=== PATIENT | male | born 1960 | race Caucasian/White ===

== ENCOUNTER → 2023-01-10 15:04 | Outpatient (BNVA) | payer OTHER, SELFPAY | PROVIDERS: PCP Internal Medicine; Visit Provider Hospitalist | DX: J44.9 Chronic obstructive pulmonary disease, unspecified (principal); J64 Unspecified pneumoconiosis; R91.1 Solitary pulmonary nodule; R13.10 Dysphagia, unspecified; Z87.891 Personal history of nicotine dependence | CPT/HCPCS: 99202 ==

== ENCOUNTER 2023-03-07 09:06 | Outpatient (REF) | payer OTHER, SELFPAY ==
--- NOTE | ~2023-03-07 | FL_ITS ---
EXAMINATION: FL BARIUM SWALLOW CLINICAL INFORMATION: Reflux, heartburn. COMPARISON: None available. TECHNIQUE: Barium swallow examination is performed using fluoroscopic evaluation in addition to multiple fluoroscopic spot views. The patient is imaged both upright and prone and using both thick and thin sulfate along with effervescent granules. Fluoroscopy time: 1.7 minutes DAP: 2.521 Gy-cm2 Images: 34 FINDINGS: There is normal apposition of vocal cords while saying E . There is normal elevation of the soft palate while saying candy . Patient swallowed thin and thick barium and half-inch diameter barium tablet without difficulty. No nasopharyngeal reflux or tracheal aspiration identified. No significant cricopharyngeal hypertrophy or Zenker's diverticulum was identified. There is noted to be esophageal hypomotility. No gastroesophageal reflux was elicited during the study including with water siphon test. No esophageal mucosal abnormality was appreciated. No hiatal hernia. FL/FL barium swallow IMPRESSION: Esophageal hypomotility without hiatal hernia or gastric esophageal reflux being identified during the study.
== END 2023-03-07 09:07 | disposition home or self-care (01) ==
LOC: HO.XRAY 09:06
PROVIDERS: PCP Internal Medicine; Visit Provider Hospitalist
DX: K21.9 Gastro-esophageal reflux disease without esophagitis (principal)
CPT/HCPCS: 74220

== ENCOUNTER → 2023-03-19 15:37 | Outpatient (BNVA) | payer OTHER, SELFPAY | PROVIDERS: PCP Internal Medicine; Visit Provider Hospitalist | DX: J44.9 Chronic obstructive pulmonary disease, unspecified (principal); R91.8 Other nonspecific abnormal finding of lung field; J64 Unspecified pneumoconiosis; R13.10 Dysphagia, unspecified; Z79.899 Other long term (current) drug therapy | CPT/HCPCS: 99212 ==

== ENCOUNTER 2023-05-06 15:30 | Outpatient (REF) | payer OTHER, SELFPAY ==
--- NOTE | ~2023-05-06 | CT_ITS ---
EXAMINATION: CT CHEST WITHOUT CONTRAST CLINICAL INFORMATION: 62-year-old male with history of nonspecific abnormal finding of lung. COMPARISON: CT/PET imaging from 08/18/2014. TECHNIQUE: Multidetector volumetric CT imaging of the chest was done. Axial MIP volume rendering provided. Sagittal and coronal reformatted images were obtained. This CT examination was performed using dose optimization techniques as appropriate, variously including the following: *Automated exposure control *Adjustment of mA and/or kV according to patient size (this includes techniques or standardized protocols for targeted exams where dose is matched to indication/reason for exam; i.e. extremities or head) *Use of iterative reconstruction technique DLP: 141 mGy-cm FINDINGS: LUNGS AND PLEURA: Lungs are chronically hyperexpanded and there is moderate centrilobular emphysema and [id number] paraseptal emphysema. Saber-sheath configuration of the trachea. There are frothy secretions within the left mainstem bronchus. The bronchial lugo are mildly, diffusely thickened. There is an old, collapsed thick-walled cavitary focus at the right lung apex. Interval development of calcific densities in the wall and surrounding parenchyma. Chronic architectural distortion, fibrosis and traction bronchiectasis are present in the right apex. A calcified nodular focus peripheral to a bulla in the anterior right upper lobe has an average diameter of 0.6 cm and is stable compared to 08/18/2014 (image 257, series 5). An old small triangular shaped focus in the anterolateral right lower lobe is likely a lymph node (image 509, series 5). Chronic pleural-parenchymal opacity of scarring/fibrosis is present in the lateral left upper lobe and apex, and scattered small foci of calcification are present in the apex. There is interval increased parenchymal thickening around an emphysematous space in the lateral left apex (image 90, series 5) as well as mild traction bronchiectasis in this region. This has the appearance of inflammatory/postinfectious change. No pneumothorax or pleural effusion. A solid nodule in the anterolateral left lower lobe of 0.6 cm average diameter (image 529, series 5) has not significantly changed since 08/18/2014. CARDIOVASCULAR: The heart size is normal. No pericardial effusion. Mild atherosclerosis of the thoracic aorta without aneurysm. Pulmonary arteries are normal in caliber. CORONARY ARTERY CALCIFICATION: There is mild atherosclerotic calcification of the left anterior descending coronary artery. MEDIASTINUM AND LOWER NECK: No mediastinal mass. The esophagus and thyroid gland are unremarkable. LYMPHATICS: No pathologic sized lymph nodes. UPPER ABDOMEN: Adrenal glands are normal. 0.4 cm calyceal stone of the upper pole of the right kidney. No hydronephrosis. SKELETAL AND CHEST WALL: No chest wall mass. Bones are diffusely osteopenic. Degenerative disc disease of L2-L3 with mild retrolisthesis of L2 on L3. No acute or suspicious osseous abnormality. CT/CT chest wo IV con IMPRESSION: * There is extensive centrilobular and paraseptal emphysema. * Chronic architectural distortion and collapse of an old thick-walled cavitary focus in the right upper lobe. This is consistent with sequela of remote infection/inflammation. No evidence of acute pneumonia or emerging mass in this region. * Compared to 08/18/2014, there is increased pleural-parenchymal opacity that has the appearance of inflammatory change/fibrosis. Query whether patient has had any clinical pneumonia within the last several months. Although the opacity does not have a masslike appearance, consider chest CT follow-up in the next 3-6 months to ensure stability in this patient who would be at increased risk for development of carcinoma.
== END 2023-05-06 15:31 | disposition home or self-care (01) ==
LOC: HO.CT 15:30
PROVIDERS: PCP Internal Medicine; Visit Provider Hospitalist
DX: R91.8 Other nonspecific abnormal finding of lung field (principal)
CPT/HCPCS: 71250

== ENCOUNTER 2023-06-04 15:34 | Outpatient (REF) | payer OTHER, SELFPAY ==
--- NOTE | 2023-06-04 16:19 | PFT_ITS ---
Forced vital capacity 71%, FEV1 34%, FEV1/FVC ratio is 38. FEF 25-75 18% and MVV 37%. Post bronchodilator therapy, there is marked improvement in FEV1, FEF 25/75, and FEF maximum. Total lung capacity 143%, residual volume to 20%. Diffusion capacity 56%. CONCLUSION: Very severe obstructive airway disorder. Significant improvement after bronchodilator therapy is noted. These findings are consistent with asthma/COPD overlap syndrome. There is also evidence of hyperinflation and air trapping. Clinical correlation is recommended. Bill Thompson MD MSRad/MODL / [phone]
== END 2023-06-04 15:35 | disposition home or self-care (01) ==
LOC: HO.RESP 15:34
PROVIDERS: PCP Internal Medicine; Visit Provider Hospitalist
DX: J44.9 Chronic obstructive pulmonary disease, unspecified (principal)
CPT/HCPCS: 94010; 94727; 94729

== ENCOUNTER → 2023-06-04 16:19 | Outpatient (BNV) | payer OTHER, SELFPAY | PROVIDERS: PCP Internal Medicine; Visit Provider Internal Medicine | DX: J43.9 Emphysema, unspecified (principal) | CPT/HCPCS: 94060; 94727; 94729 ==

== ENCOUNTER 2023-06-27 15:49 | Outpatient (AMB) | payer OTHER, SELFPAY ==
--- NOTE | 2023-06-27 15:58 | A.OFFVIS_ITS ---
Intake Vital Signs 06/27/23 15:59 Height 6 ft 1 in Weight 142 lb 3.17 oz BMI 18.8 BP 126/70 Blood Pressure Location Rt brachial Position Sitting Pulse 87 Pulse Source Pulse Oximeter Pulse Oximetry (%) 95 Oxygen Delivery Method Room Air Intake Visit Reasons: COPD Historic [employer]othing [employer] Costume Maker Required: No Bag Hanger: Bag Hanger offered & declined Accompanied by: Self / Same As Patient Allergies reglan Allergy (Severe, Uncoded 06/27/23 16:02) Agitated Medication List - Last Reconciled 06/27/23 by Diane Manzano LPN albuterol sulfate 90 mcg/actuation 2 puffs inhalation Q6H PRN 30 days arformoterol (Brovana) 2 mL inhalation Q12H 30 days budesonide 0.5 mg (2 mL) inhalation BID 30 days diazepam 5 mg PO BID ipratropium bromide 17 mcg/actuation (Atrovent HFA) 2 puffs inhalation QID PRN nebulizers As directed sertraline 25 mg PO DAILY tiotropium bromide 2.5 mcg/actuation (Spiriva Respimat) 2 puffs inhalation DAILY 90 days trazodone 100 - 200 mg PO BEDTIME umeclidinium-vilanterol 62.5-25 mcg/actuation (Anoro Ellipta) 1 ea inhalation DAILY HPI HPI Comments History of Present Illness Details The patient is a 62-year-old gentleman with a history of smoking presents with worsening respiratory symptoms. The patient was given a diagnosis of COPD. He has tried multiple inhalers without any significant improvement. Complains of shortness of breath with activity. Sometimes he has episodes where he just can not catch his breath even at rest. Seems like the symptoms are getting worse. He has not undergone pulmonary function studies. He is participating in the lung cancer screening program at [facility]. We did review his CT scans. He has a small 6 mm pulmonary nodule that has not changed. In addition to that he has significant emphysema with some bolus emphysema primarily upper lung zone predominant. 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 He does have a respirator that he uses mainly when he is working with will base pains but not so much with the latex pains. During the visit we did go for brief walking oximetry in his oxygen did drop to around 91 92%, but, did not qualify for oxygen. 03/19/2023 the patient is here for a pulm onary follow-up visit. The patient overall still feels short of breath moderate severity. Patient still desaturates down to 90% with activity. If he goes up a flight of stairs or uphill he likely drops further down. The patient was switched over to nebulized therapy. She is seems to be little better but still having significant symptoms. Still has a hard time swallowing. The barium swallow demonstrated hypomotility no evidence of any reflux or hiatal hernia. The patient has not had PFTs yet. Will go ahead and request PFTs and also start him on pulmonary rehabilitation. Will reassess his oxygen needs when he starts pulmonary rehab. He did have a CT scan of the chest back in April 2022 demonstrating pulmonary nodules. The patient should have a repeat CT scan April of this year. Will follow-up with the results during the next visit. Today we did a swab for alpha-1 antitrypsin deficiency will hopefully have that back in a few weeks. 06/27/2023 the patient is here for a pulmonary follow-up visit. He is doing overall about the same. Continues to work very hard in his [employer] company. Continues use his respiratory therapy with the nebulized med her. We did review his pulmonary function studies. The patient does have reversible obstruction consistent with an asthma phenotype. Although he does have extensive emphysema. He did try to go to pulmonary rehab they did not have any times in the afternoon and therefore he could not go. The patient did have a CT scan of the chest that was personally by me. I also reviewed the CT scan that he had previously. He is has a lot of pleural parenchymal disease primarily at the right upper lobe area. To some degree does have a cavitary thick wall area in the right upper lobe area. He has had multiple CT scans. He was actually compared to 2014 when he had it but slightly increased size. Likely more inflammatory or postinfectious. Still the patient does have a high-risk malignancies or will need to continue to be monitored. He does have extensive emphysema therefore any kind of intervention would be high risk for this patient. [facility] Medical History (Updated 06/27/23 @ 22:47 by Alan Lagos MD) Pneumoconiosis Pulmonary nodules COPD (chronic obstructive pulmonary disease) Dysphagia Social History (Updated 06/27/23 @ 16:04 by Diane Manzano LPN) Patient Tobacco Use Status: Former Tobacco user Tobacco use type: Cigarette Years Smoked: 30 Years Review of Systems Const Denies fever(s) Eyes Denies change in vision ENT Reports dysphagia, Denies dizziness and Reports nasal congestion Card Denies chest pain, Reports dyspnea and Reports dyspnea on exertion Resp Reports cough, Reports dyspnea, Reports dyspnea on exertion and Denies wheezing GI Reports dysphagia Musc Reports no additional complaints Skin/Breast Denies rash Neuro Denies dizziness Andrea/Lymph Denies lymphadenopathy Aller/Immun Denies wheezing Physical Exam Vital Signs: Last Vital Signs Pulse 87 06/27/23 15:59 BP 126/70 06/27/23 15:59 Pulse Ox 95 06/27/23 15:59 Oxygen Delivery Method Room Air 06/27/23 15:59 BMI result Body Mass Index 18.8 Const General: comfortable HEENT Head: Yes normocephalic Eyes General: appearance normal, both eyes and all related structures Neck Neck: Yes supple Chest Chest palpation & inspection: normal inspection of the chest Resp Effort & Inspection: normal respiratory effort Auscultation: no rales, no rhonchi and diminished lung sounds Cardio Rate: regular rate Rhythm: regular rhythm Heart sounds: S1 normal heart sound present and S2 normal heart sound present GI Palpation (GI): Soft to palpation Extrem General: Yes no clubbing, cyanosis or edema Assessment & Plan Assessment & Plan (1) COPD (chronic obstructive pulmonary disease): Comment: asthma phenotype Code(s): J44.9 - Chronic obstructive pulmonary disease, unspecified Qualifiers: COPD type: emphysema Emphysema type: centrilobular Qualified Code(s): J43.2 - Centrilobular emphysema (2) Dysphagia: Comment: dysmotility based on barium swallow Code(s): R13.10 - Dysphagia, unspecified Qualifiers: Dysphagia type: oral phase Qualified Code(s): R13.11 - Dysphagia, oral phase (3) Pulmonary nodules: Code(s): R91.8 - Other nonspecific abnormal finding of lung field (4) 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
[2023-06-27 15:59] VITALS: BP 126/70; PULSE 87; O2SAT 95; BMI 18.8
== END 2023-06-27 16:20 | disposition home or self-care (01) ==
PROVIDERS: PCP Internal Medicine; Visit Provider Hospitalist
DX: J43.2 Centrilobular emphysema (principal); R13.11 Dysphagia, oral phase; R91.8 Other nonspecific abnormal finding of lung field; J64 Unspecified pneumoconiosis
CPT/HCPCS: 99214

== ENCOUNTER → 2023-06-27 15:49 | Outpatient (BNVA) | payer OTHER, SELFPAY | PROVIDERS: PCP Internal Medicine; Visit Provider Hospitalist | DX: J43.2 Centrilobular emphysema (principal); R13.11 Dysphagia, oral phase; R91.8 Other nonspecific abnormal finding of lung field; J64 Unspecified pneumoconiosis; Z79.899 Other long term (current) drug therapy | CPT/HCPCS: 99212 ==

== ENCOUNTER 2024-01-23 15:38 | Outpatient (AMB) | payer OTHER, SELFPAY ==
[2024-01-23 15:46] VITALS: PULSE 89; O2SAT 96; BMI 18.5
--- NOTE | 2024-01-23 15:46 | A.OFFVIS_ITS ---
Vital Signs 01/23/24 15:46 Height 6 ft 1 in Weight 139 lb 15.896 oz BMI 18.5 Pulse 89 Pulse Source Pulse Oximeter Pulse Oximetry (%) 96 Oxygen Delivery Method Room Air Intake Visit Reasons: COPD Bail Agent Required: No Allergies reglan Allergy (Severe, Uncoded 01/23/24 15:47) Agitated HPI Comments Details: The patient is a 63 -year-old gentleman with a history of smoking presents with worsening respiratory symptoms. The patient was given a diagnosis of COPD. He has tried multiple inhalers without any significant improvement. Complains of shortness of breath with activity. Sometimes he has episodes where he just can not catch his breath even at rest. Seems like the symptoms are getting worse. He has not undergone pulmonary function studies. He is participating in the lung cancer screening program at [facility]. We did review his CT scans. He has a small 6 mm pulmonary nodule that has not changed. In addition to that he has significant emphysema with some bolus emphysema primarily upper lung zone predominant. 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 He does have a respirator that he uses mainly when he is working with [employer] pains but not so much with the latex pains. During the visit we did go for brief walking oximetry in his oxygen did drop to around 91 92%, but, did not qualify for oxygen. 03/19/2023 the patient is here for a pulmonary follow-up visit. The patient ove rall still feels short of breath moderate severity. Patient still desaturates down to 90% with activity. If he goes up a flight of stairs or uphill he likely drops further down. The patient was switched over to nebulized therapy. She is seems to be little better but still having significant symptoms. Still has a hard time swallowing. The barium swallow demonstrated hypomotility no evidence of any reflux or hiatal hernia. The patient has not had PFTs yet. Will go ahead and request PFTs and also start him on pulmonary rehabilitation. Will reassess his oxygen needs when he starts pulmonary rehab. He did have a CT scan of the chest back in April 2022 demonstrating pulmonary nodules. The patient should have a repeat CT scan April of this year. Will follow-up with the results during the next visit. Today we did a swab for alpha-1 antitrypsin deficiency will hopefully have that back in a few weeks. 06/27/2023 the patient is here for a pulmonary follow-up visit. He is doing o verall about the same. 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 Continues use his respiratory therapy with the nebulized med her. We did review his pulmonary function studies. The patient does have reversible obstruction consistent with an asthma phenotype. Although he does have extensive emphysema. He did try to go to pulmonary rehab they did not have any times in the afternoon and therefore he could not go. The patient did have a CT scan of the chest that was personally by me. I also reviewed the CT scan that he had previously. He is has a lot of pleural parenchymal disease primarily at the right upper lobe area. To some degree does have a cavitary thick wall area in the right upper lobe area. He has had multiple CT scans. He was actually compared to 2013 when he had it but slightly increased size. Likely more inflammatory or postinfectious. Still the patient does have a high-risk malignancies or will need to continue to be monitored. He does have extensive emphysema therefore any kind of intervention would be high risk for this patient. 01/23/2024 the patient is here for a pulmonary follow-up visit. He continues have episodes of shortness of breath. He has been using the nebulizer with good effect. Sometimes he does not have enough time to give himself the 2 treatments. I did offer him to be switched over to inhalers but at this point he finds the nebulizer more effective. He continues also on the Spiriva. 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 He understands he needs to make sure that he maintains good ventilation to minimize fumes and toxin exposure. The patient did have a CT scan of the chest last done in April 2023. I did review it and did compare to his previous CT scan from [facility] done back in 2021. it appears that he does have a new 8 mm pulmonary nodule in the lingula which was not present again on the CT scan from [facility]. For that reason I will go ahead and request a CT scan sooner to make sure this nodular density does not progress. The patient also has a history family history of cancer. the patient also has not asthma phenotype. Will go ahead and request blood work prior to the next visit to see if he has a candidate for any biologic therapies in view of his ongoing symptoms and severe persistent uncontrolled asthma. [facility] Medical History (Updated 01/23/24 @ 21:54 by Alan Lagos MD) Severe asthma Pneumoconiosis Pulmonary nodules COPD (chronic obstructive pulmonary disease) Dysphagia Social History (Updated 06/27/23 @ 16:04 by Diane Manzano LPN) Patient Tobacco Use Status: Former Tobacco user Tobacco use type: Cigarette Years Smoked: 30 Years Review of Systems Const Denies fever(s) Eyes Denies change in vision ENT Reports dysphagia, Denies dizziness and Reports nasal congestion Card Denies chest pain, Reports dyspnea and Reports dyspnea on exertion Resp Reports cough, Reports dyspnea, Reports dyspnea on exertion and Denies wheezing GI Reports dysphagia Musc Reports no additional complaints Skin/Breast Denies rash Neuro Denies dizziness Andrea/Lymph Denies lymphadenopathy Aller/Immun Denies wheezing Physical Exam Vital Signs: Last Vital Signs Pulse 89 01/23/24 15:46 Pulse Ox 96 01/23/24 15:46 Oxygen Delivery Method Room Air 01/23/24 15:46 BMI result Body Mass Index 18.5 Const General: comfortable HEENT Head: Yes normocephalic Eyes General: appearance normal, both eyes and all related structures Neck Neck: Yes supple Chest Chest palpation & inspection: normal inspection of the chest Resp Effort & Inspection: normal respiratory effort Auscultation: no rales, no rhonchi, wheezes and diminished lung sounds Cardio Rate: regular rate Rhythm: regular rhythm Heart sounds: S1 normal heart sound present and S2 normal heart sound present GI Palpation (GI): Soft to palpation Extrem General: Yes no clubbing, cyanosis or edema Assessment & Plan Assessment & Plan (1) COPD (chronic obstructive pulmonary disease): Comment: asthma phenotype Code(s): J44.9 - Chronic obstructive pulmonary disease, unspecified Category: Medical Qualifiers: COPD type: emphysema Emphysema type: centrilobular Qualified Code(s): J43.2 - Centrilobular emphysema (2) Dysphagia: Comment: dysmotility based on barium swallow Code(s): R13.10 - Dysphagia, unspecified Category: Medical Qualifiers: Dysphagia type: oral phase Qualified Code(s): R13.11 - Dysphagia, oral phase (3) Pulmonary nodules: Code(s): R91.8 - Other nonspecific abnormal finding of lung field Category: Medical (4) 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 COPD Code(s): J64 - Unspecified pneumoconiosis Category: Medical (5) Severe asthma: Code(s): J45.909 - Unspecified asthma, uncomplicated Category: Medical Qualifiers: Asthma complication type: uncomplicated Asthma persistence: persistent Qualified Code(s): J45.50 - Severe persistent asthma, uncomplicated Plan continue Brovana twice a day continue budesonide twice a day continue Spiriva daily Pulmonary rehab, consider online) Will need CT chest to reassess the new >8mm Lingular pulmonary nodule Bloodwork follow-up in 6 months Orders: Orders CT chest wo IV con Today R91.8 - Other nonspecific abnormal finding of lung field Complete Blood Count Auto Diff Today J43.2 - Centrilobular emphysema, J64 - Unspecified pneumoconiosis, R91.8 - Other nonspecific abnormal finding of lung field Hypersensitive Pneumonitis Prf Today J43.2 - Centrilobular emphysema, J64 - Unspecified pneumoconiosis, R91.8 - Other nonspecific abnormal finding of lung field Immunoglobulin E Today J43.2 - Centrilobular emphysema, J64 - Unspecified pneumoconiosis, R91.8 - Other nonspecific abnormal finding of lung field Erythrocyte Sedimentation Rate Today J43.2 - Centrilobular emphysema, J64 - Unspecified pneumoconiosis, R91.8 - Other nonspecific abnormal finding of lung field Coding Level of Care Code Est Pt Level 4 (74662) Diagnoses Centrilobular emphysema J43.2 COPD type: emphysema Emphysema type: centrilobular Oral phase dysphagia R13.11 Dysphagia type: oral phase Pulmonary nodules R91.8 Pneumoconiosis J64 Severe persistent asthma without complication J45.50 Asthma complication type: uncomplicated Asthma persistence: persistent Time Spent (min) 18
== END 2024-01-23 16:11 | disposition home or self-care (01) ==
PROVIDERS: PCP Internal Medicine; Visit Provider Hospitalist
DX: J43.2 Centrilobular emphysema (principal); R13.11 Dysphagia, oral phase; R91.8 Other nonspecific abnormal finding of lung field; J64 Unspecified pneumoconiosis; J45.50 Severe persistent asthma, uncomplicated
CPT/HCPCS: 99214

== ENCOUNTER → 2024-01-23 15:38 | Outpatient (BNVA) | payer OTHER, SELFPAY | PROVIDERS: PCP Internal Medicine; Visit Provider Hospitalist | DX: J43.2 Centrilobular emphysema (principal); J45.50 Severe persistent asthma, uncomplicated; R13.11 Dysphagia, oral phase; R91.8 Other nonspecific abnormal finding of lung field; J64 Unspecified pneumoconiosis; Z79.899 Other long term (current) drug therapy | CPT/HCPCS: 99212 ==

== ENCOUNTER 2024-03-09 16:18 | Outpatient (REF) | payer OTHER, SELFPAY ==
--- NOTE | ~2024-03-09 | CT_ITS ---
EXAMINATION: CT CHEST WITHOUT CONTRAST CLINICAL INFORMATION: 63-year-old male, follow-up pleural abnormality left upper lobe laterally and left apex.; Other nonspecific abnormal finding of lung field. COMPARISON: 05/06/2023; PET/CT dated 08/18/2014. TECHNIQUE: Multidetector volumetric CT imaging of the chest was done. Axial MIP volume rendering provided. Sagittal and coronal reformatted images were obtained. This CT examination was performed using dose optimization techniques as appropriate, variously including the following: *Automated exposure control *Adjustment of mA and/or kV according to patient size (this includes techniques or standardized protocols for targeted exams where dose is matched to indication/reason for exam; i.e. 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 Scarring in bilateral apices with calcification in right apex. LUNGS: -There is moderate to severe centrilobular emphysema bilaterally, with scarring and bullous changes in the bilateral apices, unchanged from the prior examination. No consolidations. Mild respiratory motion artifact is present in both lungs. RIGHT LUNG: -Stable right apical pleuroparenchymal scarring with traction bronchiectasis, subpleural fibrosis, and a similar retracted appearing partially collapsed appearing cavity with minimally thick lugo in the right apex centrally. Compared with the prior examination, lugo appear slightly less thickened, supporting inflammatory/infectious etiology. Associated calcified granulomatous are present along with a large calcification immediately inferior to the cavity. -There are similar apical bullous changes, with stable paramediastinal bullous changes. -There is traction bronchiectasis in the right upper lobe, with associated mild volume loss, with lesser degrees cylindrical bronchiectasis in the right middle lobe and right lower lobe. Mild bronchial wall thickening is present in the right apex and right upper lobe superior segment. This is unchanged. Grossly no filling defects or intraluminal masses. No significant mucous plugging evident. -There is a similar partially calcified nodule in the anterior minor fissure, most likely intrapulmonary lymph node with granulomatous change. -2 mm nodule superior segment right lower lobe (series 7, image 271), stable. -Triangular intrapulmonary lymph node in the anterior inferior right lower lobe (series 7, image 517) is stable. -2 mm nodule in the right posterior costophrenic sulcus (series 4, image 70), stable. -No new nodules. LEFT LUNG: -Left apical and paramediastinal bullous changes, unchanged. -Cavitary lesion in the lateral left apex with pleural thickening has improved, with no persistent cavity present, and stable pleural thickening present in the lateral left apex and anterior left upper lobe superior segment. These findings are unchanged and hence benign, related to post inflammatory/infectious changes. -Stable granulomatous calcifications in the posterior aspect of the left upper lobe, with probable suture line present posteriorly, also unchanged. -Stable traction bronchiectasis left upper lobe, most significant superior segment. -Mild bronchiectasis in the lingula and left lower lobe without significant bronchial wall thickening or endobronchial filling defect. -Stable 3 mm nodule (series 7, image 353) unchanged, benign. -Average diameter 6 mm nodule in the anteroinferior left lower lobe is unchanged (series 7, image 557). This has a pleural tag and may represent a lymph node. It is also unchanged from 2014. This is benign. -No new nodules. MEDIASTINUM: -Saber-sheath trachea. -Heart size normal. -Prominence of the aortic root noted, approximately 3.7 cm AP, although motion blurring on this non-gated study could accentuate this. This appears unchanged. No pericardial effusion. -Main pulmonary artery is normal in size. -Mild aortic calcifications are present without aneurysm. Normal branching pattern with mild calcification of the great vessels. -Thyroid appears slightly small but otherwise normal. -No lymphadenopathy. CORONARY ARTERY CALCIFICATION: Mild, proximal LAD. Minimal proximal circumflex. Minimal RCA. PLEURA: As described above. No effusions. AXILLA: No lymphadenopathy. UPPER ABDOMEN: -5 mm nonobstructing calculus medial upper pole right kidney. -Moderate aortic calcification. OSSEOUS STRUCTURES: -No suspicious lytic or blastic bone lesion. Mild osteopenia of the spine. -Severe degenerative disc disease localized L2-L3 with mild retrolisthesis, grade 1. Remainder of the lumbar spine not imaged. -Mild DJD in both shoulder joints. CT/CT chest wo IV con IMPRESSION: 1. Moderate to severe centrilobular and paraseptal emphysema with stable apical and paramediastinal bullous changes. No definite active pulmonary disease seen. 2. Biapical pleural parenchymal scarring and pleural thickening greater on the left, is stable from prior exams and consistent with an infectious/inflammatory etiology. 3. A crenated-appearing right apical cavitary lesion demonstrates similar size however the lugo are slightly thinner, supporting benign etiology. 4. Previously present left apical cavitary focus has resolved on today's exam. 5. Diffuse bronchiectasis bilaterally, most significant in the upper lobes and apices, where there is traction bronchiectasis and mild bronchial wall thickening, likely on the basis of chronic fibrotic changes. No endobronchial filling defect seen. 6. Stable bilateral nodules measuring up to 6 mm average diameter, with no new nodule present. 7. Aortic root appears slightly prominent, however this is a non-gated study. Consider correlation with echocardiogram to exclude aortic root dilatation and aortic valve insufficiency. 8. 5 mm nonobstructing calculus right superior kidney. 9. Additional ancillary findings as described in the body of the report. Fleischner guidelines were followed.
== END 2024-03-09 16:19 | disposition home or self-care (01) ==
LOC: HO.CT 16:18
PROVIDERS: PCP Internal Medicine; Visit Provider Hospitalist
DX: R91.8 Other nonspecific abnormal finding of lung field (principal)
CPT/HCPCS: 71250

== ENCOUNTER → 2024-03-09 16:20 | Outpatient (BNV) | payer OTHER, SELFPAY | PROVIDERS: PCP Internal Medicine; Visit Provider Radiology Diagnostic Radiology | DX: R91.8 Other nonspecific abnormal finding of lung field (principal) | CPT/HCPCS: 71250 ==

== ENCOUNTER 2024-07-28 15:37 | Outpatient (AMB) | payer OTHER, SELFPAY ==
--- NOTE | 2024-07-28 15:41 | A.OFFVIS_ITS ---
Vital Signs 07/28/24 15:42 Weight 139 lb 15.896 oz BP 128/80 Blood Pressure Location Rt brachial Position Sitting Pulse 105 H Pulse Source Pulse Oximeter Pulse Oximetry (%) 97 Oxygen Delivery Method Room Air Intake Visit Reasons: COPD Allergies reglan Allergy (Severe, Uncoded 07/28/24 15:45) Agitated Medication List - Last Reconciled 07/28/24 by Janet Garnica LPN albuterol sulfate 90 mcg/actuation 2 puffs inhalation Q6H PRN 30 days arformoterol (Brovana) 2 mL inhalation Q12H 30 days budesonide 0.5 mg (2 mL) inhalation BID 30 days diazepam 5 mg PO BID ipratropium bromide 17 mcg/actuation (Atrovent HFA) 2 puffs inhalation QID PRN nebulizers As directed sertraline 25 mg PO DAILY tiotropium bromide 2.5 mcg/actuation (Spiriva Respimat) 2 puffs inhalation DAILY 90 days trazodone 100 - 200 mg PO BEDTIME HPI Comments Details: The patient is a 64-year-old gentleman with a history of smoking presents with worsening respiratory symptoms. The patient was given a diagnosis of COPD. He has tried multiple inhalers without any significant improvement. Complains of shortness of breath with activity. Sometimes he has episodes where he just can not catch his breath even at rest. Seems like the symptoms are getting worse. He has not undergone pulmonary function studies. He is participating in the [facility] cancer screening program at [facility]. We did review his CT scans. He has a small 6 mm pulmonary nodule that has not changed. In addition to that he has significant emphysema with some bolus emphysema primarily upper lung zone predominant. 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 He does have a respirator that he uses mainly when he is working with will base pains but not so much with the latex pains. During the visit we did go for brief walking oximetry in his oxygen did drop to around 91 92%, but, did not qualify for oxygen. 03/19/2023 the patient is here for a pulmonary follow-up visit. The patient overall still feels short of breath moderate severity. Patient still desaturates down to 90% with activity. If he goes up a flight of stairs or uphill he likely drops further down. The patient was switched over to nebulized therapy. She is seems to be little better but still having significant symptoms. Still has a hard time swallowing. The barium swallow demonstrated hypomotility no evidence of any reflux or hiatal hernia. The patient has not had PFTs yet. Will go ahead and request PFTs and also start him on pulmonary rehabilitation. Will reassess his oxygen needs when he starts pulmonary rehab. He did have a CT scan of the chest back in April 2022 demonstrating pulmonary nodules. The patient should have a repeat CT scan April of this year. Will follow-up with the results during the next visit. Today we did a swab for alpha-1 antitrypsin deficiency will hopefully have that back in a few weeks. 06/27/2023 the patient is here for a pulmonary follow-up visit. He is doing overall about the same. Continues to work very hard in his [employer] company. Continues use his respiratory therapy with the nebulized med her. We did review his pulmonary function studies. The patient does have reversible obstruction consistent with an asthma phenotype. Although he does have extensive emphysema. He did try to go to pulmonary rehab they did not have any times in the afternoon and therefore he could not go. The patient did have a CT scan of the chest that was personally by me. I also reviewed the CT scan that he had previously. He is has a lot of pleural parenchymal disease primarily at the right upper lobe area. To some degree does have a cavitary thick wall area in the right upper lobe area. He has had multiple CT scans. He was actually compared to 2014 when he had it but slightly increased size. Likely more inflammatory or postinfectious. Still the patient does have a high-risk malignancies or will need to continue to be monitored. He does have extensive emphysema therefore any kind of intervention would be high risk for this patient. 01/23/2024 the patient is here for a pulmonary follow-up visit. He continues have episodes of shortness of breath. He has been using the nebulizer with good effect. Sometimes he does not have enough time to give himself the 2 treatments. I did offer him to be switched over to inhalers but at this point he finds the nebulizer more effective. He continues also on the Spiriva. 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 He understands he needs to make sure that he maintains good ventilation to minimize fumes and toxin exposure. The patient did have a CT scan of the chest last done in April 2023. I did review it and did compare to his previous CT scan from [facility] done back in 2021. it appears that he does have a new 8 mm pulmonary nodule in the lingula which was not present again on the CT scan from [facility]. For that reason I will go ahead and request a CT scan sooner to make sure this nodular density does not progress. The patient also has a history family history of cancer. the patient also has not asthma phenotype. Will go ahead and request blood work prior to the next visit to see if he has a candidate for any biologic therapies in view of his ongoing symptoms and severe persistent uncontrolled asthma. 07/28/2024 the patient is here for a pulmonary follow-up visit. The patient has been having worsening respiratory symptoms although he stopped using his nebulizer. He also can not get the Spiriva cover. Therefore switch him from Brovana to DuoNeb to see if he can get double coverage. In addition to that he can should continue the budesonide. PFTs from 06/19/2023 demonstrated a significant response to bronchodilators. Therefore he needs to continue with bronchodilation throughout the maintain that efficacy. His last CT scan of the chest was done back in 03/19/2024 personally reviewed by me demonstrating extensive emphysema and stable pulmonary nodules. Therefore will follow-up with a repeat CT scan February of 2025. The patient will continue with his current respiratory therapy will add Combivent for him to use in between his nebulized therapy. Specially while he is working. And will plan to follow-up after his CT scan. If he develops any worsening issues prior to that he will call for an earlier assessment. He does not have any questions about vaccines at this time. [facility] Medical History (Updated 01/23/24 @ 21:54 by Alan Lagos MD) Severe asthma Pneumoconiosis Pulmonary nodules COPD (chronic obstructive pulmonary disease) Dysphagia Social History (Updated 06/27/23 @ 16:04 by Diane Manzano LPN) Patient Tobacco Use Status: Former Tobacco user Tobacco use type: Cigarette Years Smoked: 30 Years Review of Systems Const Denies fever(s) Eyes Denies change in vision ENT Reports dysphagia, Denies dizziness and Reports nasal congestion Card Denies chest pain, Reports dyspnea and Reports dyspnea on exertion Resp Reports cough, Reports dyspnea, Reports dyspnea on exertion and Denies wheezing GI Reports dysphagia Musc Reports no additional complaints Skin/Breast Denies rash Neuro Denies dizziness Andrea/Lymph Denies lymphadenopathy Aller/Immun Denies wheezing Physical Exam Vital Signs: Last Vital Signs Pulse 105 H 07/28/24 15:42 BP 128/80 07/28/24 15:42 Pulse Ox 97 07/28/24 15:42 Oxygen Delivery Method Room Air 07/28/24 15:42 Const General: comfortable HEENT Head: Yes normocephalic Eyes General: appearance normal, both eyes and all related structures Neck Neck: Yes supple Chest Chest palpation & inspection: normal inspection of the chest Resp Effort & Inspection: normal respiratory effort and prolonged expiratory phase Auscultation: no rales, no rhonchi, wheezes and diminished lung sounds Cardio Rate: regular rate Rhythm: regular rhythm Heart sounds: S1 normal heart sound present and S2 normal heart sound present GI Palpation (GI): Soft to palpation Extrem General: Yes no clubbing, cyanosis or edema Results Reviewed Results Reviewed: [address] [address] [address] Scan Report Signed Patient: Sanford Baird MR#: [id number] : 1960 Acct:[id number] Age/Sex: 63 / M ADM Date: 03/09/24 Loc: .CT Attending Dr: Alan Lagos MD Ordering Physician: Alan Lagos MD Date of Service: 03/09/24 Procedure(s): CT chest wo IV con Accession Number(s): [id number] cc: Mushtaq Ramirez MD; Alan Lagos MD~ EXAMINATION: CT CHEST WITHOUT CONTRAST CLINICAL INFORMATION: 63-year-old male, follow-up pleural abnormality left upper lobe laterally and left apex.; Other nonspecific abnormal finding of lung field. COMPARISON: 05/06/2023; PET/CT dated 08/18/2014. TECHNIQUE: Multidetector volumetric CT imaging of the chest was done. Axial MIP volume rendering provided. Sagittal and coronal reformatted images were obtained. This CT examination was performed using dose optimization techniques as appropriate, variously including the following: *Automated exposure control *Adjustment of mA and/or kV according to patient size (this includes techniques or standardized protocols for targeted exams where dose is matched to indication/reason for exam; i.e. 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 Scarring in bilateral apices with calcification in right apex. LUNGS: -There is moderate to severe centrilobular emphysema bilaterally, with scarring and bullous changes in the bilateral apices, unchanged from the prior examination. No consolidations. Mild respiratory motion artifact is present in both lungs. RIGHT LUNG: -Stable right apical pleuroparenchymal scarring with traction bronchiectasis, subpleural fibrosis, and a similar retracted appearing partially collapsed appearing cavity with minimally thick lugo in the right apex centrally. Compared with the prior examination, lugo appear slightly less thickened, supporting inflammatory/infectious etiology. Associated calcified granulomatous are present along with a large calcification immediately inferior to the cavity. -There are similar apical bullous changes, with stable paramediastinal bullous changes. -There is traction bronchiectasis in the right upper lobe, with associated mild volume loss, with lesser degrees cylindrical bronchiectasis in the right middle lobe and right lower lobe. Mild bronchial wall thickening is present in the right apex and right upper lobe superior segment. This is unchanged. Grossly no filling defects or intraluminal masses. No significant mucous plugging evident. -There is a similar partially calcified nodule in the anterior minor fissure, most likely intrapulmonary lymph node with granulomatous change. -2 mm nodule superior segment right lower lobe (series 7, image 271), stable. -Triangular intrapulmonary lymph node in the anterior inferior right lower lobe (series 7, image 517) is stable. -2 mm nodule in the right posterior costophrenic sulcus (series 4, image 70), stable. -No new nodules. LEFT LUNG: -Left apical and paramediastinal bullous changes, unchanged. -Cavitary lesion in the lateral left apex with pleural thickening has improved, with no persistent cavity present, and stable pleural thickening present in the lateral left apex and anterior left upper lobe superior segment. These findings are unchanged and hence benign, related to post inflammatory/infectious changes. -Stable granulomatous calcifications in the posterior aspect of the left upper lobe, with probable suture line present posteriorly, also unchanged. -Stable traction bronchiectasis left upper lobe, most significant superior segment. -Mild bronchiectasis in the lingula and left lower lobe without significant bronchial wall thickening or endobronchial filling defect. -Stable 3 mm nodule (series 7, image 353) unchanged, benign. -Average diameter 6 mm nodule in the anteroinferior left lower lobe is unchanged (series 7, image 557). This has a pleural tag and may represent a lymph node. It is also unchanged from 2014. This is benign. -No new nodules. MEDIASTINUM: -Saber-sheath trachea. -Heart size normal. -Prominence of the aortic root noted, approximately 3.7 cm AP, although motion blurring on this non-gated study could accentuate this. This appears unchanged. No pericardial effusion. -Main pulmonary artery is normal in size. -Mild aortic calcifications are present without aneurysm. Normal branching pattern with mild calcification of the great vessels. -Thyroid appears slightly small but otherwise normal. -No lymphadenopathy. CORONARY ARTERY CALCIFICATION: Mild, proximal LAD. Minimal proximal circumflex. Minimal RCA. PLEURA: As described above. No effusions. AXILLA: No lymphadenopathy. UPPER ABDOMEN: -5 mm nonobstructing calculus medial upper pole right kidney. -Moderate aortic calcification. OSSEOUS STRUCTURES: -No suspicious lytic or blastic bone lesion. Mild osteopenia of the spine. -Severe degenerative disc disease localized L2-L3 with mild retrolisthesis, grade 1. Remainder of the lumbar spine not imaged. -Mild DJD in both shoulder joints. CT/CT chest wo IV con IMPRESSION: 1. Moderate to severe centrilobular and paraseptal emphysema with stable apical and paramediastinal bullous changes. No definite active pulmonary disease seen. 2. Biapical pleural parenchymal scarring and pleural thickening greater on the left, is stable from prior exams and consistent with an infectious/inflammatory etiology. 3. A crenated-appearing right apical cavitary lesion demonstrates similar size however the lugo are slightly thinner, supporting benign etiology. 4. Previously present left apical cavitary focus has resolved on today's exam. 5. Diffuse bronchiectasis bilaterally, most significant in the upper lobes and apices, where there is traction bronchiectasis and mild bronchial wall thickening, likely on the basis of chronic fibrotic changes. No endobronchial filling defect seen. 6. Stable bilateral nodules measuring up to 6 mm average diameter, with no new nodule present. 7. Aortic root appears slightly prominent, however this is a non-gated study. Consider correlation with echocardiogram to exclude aortic root dilatation and aortic valve insufficiency. 8. 5 mm nonobstructing calculus right superior kidney. 9. Additional ancillary findings as described in the body of the report. Fleischner guidelines were followed. Dictated By: Tej Mendez MD Signed By: <Electronically signed by Tej Mendez MD in OV> 04/13/24 1026 DD/ 1708 TD/TT: Technology Program Manager: Assessment & Plan Assessment & Plan (1) COPD (chronic obstructive pulmonary disease): Comment: asthma phenotype Code(s): J44.9 - Chronic obstructive pulmonary disease, unspecified Category: Medical Qualifiers: COPD type: emphysema Emphysema type: centrilobular Qualified Code(s): J43.2 - Centrilobular emphysema (2) Dysphagia: Comment: dysmotility based on barium swallow Code(s): R13.10 - Dysphagia, unspecified Category: Medical Qualifiers: Dysphagia type: oral phase Qualified Code(s): R13.11 - Dysphagia, oral phase (3) Pulmonary nodules: Code(s): R91.8 - Other nonspecific abnormal finding of lung field Category: Medical (4) 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 COPD Code(s): J64 - Unspecified pneumoconiosis Category: Medical (5) Severe asthma: Code(s): J45.909 - Unspecified asthma, uncomplicated Category: Medical Qualifiers: Asthma complication type: uncomplicated Asthma persistence: persistent Qualified Code(s): J45.50 - Severe persistent asthma, uncomplicated Plan d/c Brovana twice a day start Duoneb QID continue budesonide twice a day stop Spiriva daily Pulmonary rehab, [place] Will need CT chest 02/2025 follow-up after CT chest Orders: Orders CT chest wo IV con 02/28/25 R91.8 - Other nonspecific abnormal finding of lung field Pulmonary Rehab Today J43.2 - Centrilobular emphysema Medications: New ipratropium-albuterol 0.5 mg-3 mg(2.5 mg base)/3 mL 3 mL inhalation QID 30 days 360 mL 11RF J44.9 - Chronic obstructive pulmonary disease, unspecified ipratropium-albuterol 20-100 mcg/actuation (Combivent Respimat) space evenly during waking hours 1 puff inhalation QID 30 days 4 grams 11RF Refilled budesonide 0.5 mg (2 mL) inhalation BID 30 days 120 mL 11RF J44.9 - Chronic obstructive pulmonary disease, unspecified Discontinued arformoterol (Brovana) Discontinued Reason: Doctor's Order 2 mL inhalation Q12H 30 days 120 mL 11RF J44.9 - Chronic obstructive pulmonary disease, unspecified Coding Level of Care Code Est Pt Level 4 (25858) Complex EM visit Add On G2211 Diagnoses Centrilobular emphysema J43.2 COPD type: emphysema Emphysema type: centrilobular Oral phase dysphagia R13.11 Dysphagia type: oral phase Pulmonary nodules R91.8 Pneumoconiosis J64 Severe persistent asthma without complication J45.50 Asthma complication type: uncomplicated Asthma persistence: persistent Time Spent (min) 17
[2024-07-28 15:42] VITALS: BP 128/80; PULSE 105; O2SAT 97
== END 2024-07-28 16:06 | disposition home or self-care (01) ==
LOC: HO.HPS 15:37
PROVIDERS: PCP Internal Medicine; Visit Provider Hospitalist
DX: J43.2 Centrilobular emphysema (principal); R13.11 Dysphagia, oral phase; R91.8 Other nonspecific abnormal finding of lung field; J64 Unspecified pneumoconiosis; J45.50 Severe persistent asthma, uncomplicated
CPT/HCPCS: 99214; G2211

== ENCOUNTER → 2024-07-28 15:37 | Outpatient (BNVA) | payer OTHER, SELFPAY | PROVIDERS: PCP Internal Medicine; Visit Provider Hospitalist | DX: J43.2 Centrilobular emphysema (principal); R91.8 Other nonspecific abnormal finding of lung field; R13.11 Dysphagia, oral phase; J64 Unspecified pneumoconiosis; J45.50 Severe persistent asthma, uncomplicated | CPT/HCPCS: 99212 ==

== ENCOUNTER 2025-03-31 16:43 | Outpatient (REF) | payer OTHER, SELFPAY ==
--- NOTE | ~2025-03-31 | CT_ITS ---
CLINICAL HISTORY: R91.8 - Other nonspecific abnormal finding of lung field CT chest without contrast Comparison: CT/REG/IA/SR - CT CHEST WO IV CON - 03/09/24 16:28 EDT Findings: Normal heart size. No pericardial effusion. Calcific coronary artery disease: Mild. No bulky mediastinal lymphadenopathy. Diffuse centrilobular and paraseptal emphysematous changesbiapical pleural-parenchymal scarring persists with dystrophic calcifications right upper lobe. Right apical cavitary lesion measuring 2.6 cm in longest recorded dimension is stable. Adjacent subcentimeter cavitary lesion relatively stable. Less conspicuous 6 mm spiculated pulmonary nodule left base. Stable 5 mm pulmonary nodule right upper lobe medially No pneumothorax or pleural effusions. Central airways are patent. Stable bronchiectasis. No thyroid nodules. No chest wall masses. No axillary adenopathy. No hepatosplenomegaly. No adrenal nodules. 4 mm caliceal stone midpole right kidney. No acute fractures or pathologic bone lesions. Impression: 1. Centrilobular and paraseptal emphysematous changes with upper lobe predominance. Biapical pleural-parenchymal scarring. Stable cavitary lesion right apex with adjacent dystrophic calcifications. Slightly less conspicuous spiculated nodule measuring 6 mm left lower lobe. 2. No mediastinal or hilar lymphadenopathy. Calcified coronary artery disease. 3. Nephrolithiasis on the right. This document has been electronically signed by: Carlos Monroy MD on 04/01/2025 10:41:43
== END 2025-03-31 16:44 | disposition home or self-care (01) ==
LOC: HO.CT 16:43
PROVIDERS: Visit Provider Hospitalist
DX: R91.8 Other nonspecific abnormal finding of lung field (principal)
CPT/HCPCS: 71250

== ENCOUNTER → 2025-03-31 16:45 | Outpatient (BNV) | payer OTHER, SELFPAY | PROVIDERS: Visit Provider Radiology Diagnostic Radiology | DX: J43.2 Centrilobular emphysema (principal); J94.8 Other specified pleural conditions; I25.10 Atherosclerotic heart disease of native coronary artery without angina pectoris; N20.0 Calculus of kidney | CPT/HCPCS: 71250 ==

== ENCOUNTER 2025-04-06 15:41 | Outpatient (AMB) | payer OTHER, SELFPAY ==
[2025-04-06 15:43] VITALS: BP 119/80; PULSE 78; O2SAT 96; BMI 18.6
--- NOTE | 2025-04-06 15:43 | MHC.OFFVIS ---
Vital Signs 04/06/25 15:43 Height 6 ft 1 in Weight 141 lb BMI 18.6 BP 119/80 Blood Pressure Location Lt brachial Position Sitting Pulse 78 Pulse Source Pulse Oximeter Pulse Oximetry (%) 96 Oxygen Delivery Method Room Air Intake Visit Reasons: COPD Allergies reglan Allergy (Severe, Uncoded 07/28/24 15:45) Agitated HPI Comments Details: The patient is a 64-year-old gentleman with a history of smoking presents with worsening respiratory symptoms. The patient was given a diagnosis of COPD. He has tried multiple inhalers without any significant improvement. Complains of shortness of breath with activity. Sometimes he has episodes where he just can not catch his breath even at rest. Seems like the symptoms are getting worse. He has not undergone pulmonary function studies. He is participating in the lung cancer screening program at [facility]. We did review his CT scans. He has a small 6 mm pulmonary nodule that has not changed. In addition to that he has significant emphysema with some bolus emphysema primarily upper lung zone predominant. 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 He does have a respirator that he uses mainly when he is working with will base pains but not so much with the latex pains. During the visit we did go for brief walking oximetry in his oxygen did drop to around 91 92%, but, did not qualify for oxygen. 03/19/2023 the patient is here for a pulmonary follow-up visit. The patient overall still feels short of breath moderate severity. Patient still desaturates down to 90% with activity. If he goes up a flight of stairs or uphill he likely drops further down. The patient was switched over to nebulized therapy. She is seems to be little better but still having significant symptoms. Still has a hard time swallowing. The barium swallow demonstrated hypomotility no evidence of any reflux or hiatal hernia. The patient has not had PFTs yet. Will go ahead and request PFTs and also start him on pulmonary rehabilitation. Will reassess his oxygen needs when he starts pulmonary rehab. He did have a CT scan of the chest back in April 2022 demonstrating pulmonary nodules. The patient should have a repeat CT scan April of this year. Will follow-up with the results during the next visit. Today we did a swab for alpha-1 antitrypsin deficiency will hopefully have that back in a few weeks. 06/27/2023 the patient is here for a pulmonary follow-up visit. He is doing overall about the same. 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 Continues use his respiratory therapy with the nebulized med her. We did review his pulmonary function studies. The patient does have reversible obstruction consistent with an asthma phenotype. Although he does have extensive emphysema. He did try to go to pulmonary rehab they did not have any times in the afternoon and therefore he could not go. The patient did have a CT scan of the chest that was personally by me. I also reviewed the CT scan that he had previously. He is has a lot of pleural parenchymal disease primarily at the right upper lobe area. To some degree does have a cavitary thick wall area in the right upper lobe area. He has had multiple CT scans. He was actually compared to 2013 when he had it but slightly increased size. Likely more inflammatory or postinfectious. Still the patient does have a high-risk malignancies or will need to continue to be monitored. He does have extensive emphysema therefore any kind of intervention would be high risk for this patient. 01/23/2024 the patient is here for a pulmonary follow-up visit. He continues have episodes of shortness of breath. He has been using the nebulizer with good effect. Sometimes he does not have enough time to give himself the 2 treatments. I did offer him to be switched over to inhalers but at this point he finds the nebulizer more effective. He continues also on the Spiriva. He continues working in his company as a bridge painter. He understands he needs to make sure that he maintains good ventilation to minimize fumes and toxin exposure. The patient did have a CT scan of the chest last done in April 2023. I did review it and did compare to his previous CT scan from [facility] done back in 2021. it appears that he does have a new 8 mm pulmonary nodule in the lingula which was not present again on the CT scan from [facility]. For that reason I will go ahead and request a CT scan sooner to make sure this nodular density does not progress. The patient also has a history family history of cancer. the patient also has not asthma phenotype. Will go ahead and request blood work prior to the next visit to see if he has a candidate for any biologic therapies in view of his ongoing symptoms and severe persistent uncontrolled asthma. 07/28/2024 the patient is here for a pulmonary follow-up visit. The patient has been having worsening respiratory symptoms although he stopped using his nebulizer. He also can not get the Spiriva cover. Therefore switch him from Brovana to DuoNeb to see if he can get double coverage. In addition to that he can should continue the budesonide. PFTs from 06/19/2023 demonstrated a significant response to bronchodilators. Therefore he needs to continue with bronchodilation throughout the maintain that efficacy. His last CT scan of the chest was done back in 03/19/2024 personally reviewed by me demonstrating extensive emphysema and stable pulmonary nodules. Therefore will follow-up with a repeat CT scan February of 2025. The patient will continue with his current respiratory therapy will add Combivent for him to use in between his nebulized therapy. Specially while he is working. And will plan to follow-up after his CT scan. If he develops any worsening issues prior to that he will call for an earlier assessment. He does not have any questions about vaccines at this time. 04/06/2025 the patient is here for pulmonary follow-up visit. Overall he is doing okay. He does have a hard time working specially with the he the humidity outside as a bridge painter. 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 He does have a hard time sometimes using the nebulizer because of time constraints. We did talk about considering a portable nebulizer or a mesh nebulizer in order for him to be able to give himself treatments while working and having better bronchodilation affecting the inhaler. He is getting headaches from having the albuterol with ipratropium. Will try albuterol by itself along with the budesonide which she can do twice a day. The patient will continue. Based on the cavitary looking area of the right upper lobe will go ahead and have the patient gets some blood work he can do that on his own time. And ultimately will switch his ipratropium albuterol to regular albuterol because of the headaches. Has not issues prior to the next visit in 6 months he can always call for an earlier assessment. [facility] Medical History (Updated 01/23/24 @ 21:54 by Alan Lagos MD) Severe asthma Pneumoconiosis Pulmonary nodules COPD (chronic obstructive pulmonary disease) Dysphagia Social History (Updated 06/27/23 @ 16:04 by Diane Manzano LPN) Patient Tobacco Use Status: Former Tobacco user Tobacco use type: Cigarette Years Smoked: 30 Years Review of Systems Const Denies fever(s) Eyes Denies change in vision ENT Reports dysphagia, Denies dizziness and Reports nasal congestion Card Denies chest pain, Reports dyspnea and Reports dyspnea on exertion Resp Reports cough, Reports dyspnea, Reports dyspnea on exertion and Denies wheezing GI Reports dysphagia Musc Reports no additional complaints Skin/Breast Denies rash Neuro Denies dizziness Andrea/Lymph Denies lymphadenopathy Aller/Immun Denies wheezing Physical Exam Vital Signs: Last Vital Signs Pulse 78 04/06/25 15:43 BP 119/80 04/06/25 15:43 Pulse Ox 96 04/06/25 15:43 Oxygen Delivery Method Room Air 04/06/25 15:43 BMI result Body Mass Index 18.6 Const General: comfortable HEENT Head: Yes normocephalic Eyes General: appearance normal, both eyes and all related structures Neck Neck: Yes supple Chest Chest palpation & inspection: normal inspection of the chest Resp Effort & Inspection: normal respiratory effort and prolonged expiratory phase Auscultation: no rales, no rhonchi, wheezes and diminished lung sounds Cardio Rate: regular rate Rhythm: regular rhythm Heart sounds: S1 normal heart sound present and S2 normal heart sound present GI Palpation (GI): Soft to palpation Extrem General: Yes no clubbing, cyanosis or edema Assessment & Plan Assessment & Plan (1) Pulmonary nodules: Code(s): R91.8 - Other nonspecific abnormal finding of lung field Category: Medical (2) COPD (chronic obstructive pulmonary disease): Comment: asthma phenotype Code(s): J44.9 - Chronic obstructive pulmonary disease, unspecified Category: Medical Qualifiers: COPD type: emphysema Emphysema type: centrilobular Qualified Code(s): J43.2 - Centrilobular emphysema (3) Dysphagia: Comment: dysmotility based on barium swallow Code(s): R13.10 - Dysphagia, unspecified Category: Medical Qualifiers: Dysphagia type: oral phase Qualified Code(s): R13.11 - Dysphagia, oral phase (4) 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 COPD Code(s): J64 - Unspecified pneumoconiosis Category: Medical (5) Severe asthma: Code(s): J45.909 - Unspecified asthma, uncomplicated Category: Medical Qualifiers: Asthma persistence: persistent Asthma complication type: uncomplicated Qualified Code(s): J45.50 - Severe persistent asthma, uncomplicated Plan d/c Brovana twice a day stop Duoneb QID due to headaches start Albuterol BID continue budesonide twice a day consider restarting Spiriva daily Pulmonary rehab, [facility] Will need CT chest 1 yr will look into a portable nebulizer follow-up after 4-6 months Orders: Orders T Spot TB Today R91.8 - Other nonspecific abnormal finding of lung field Immunoglobulin E Today R91.8 - Other nonspecific abnormal finding of lung field Complete Blood Count Auto Diff Today R91.8 - Other nonspecific abnormal finding of lung field Erythrocyte Sedimentation Rate Today R91.8 - Other nonspecific abnormal finding of lung field Medications: New albuterol sulfate 2.5 mg (3 mL) inhalation BID 180 mL 11RF 30 days J43.2 - Centrilobular emphysema Discontinued ipratropium-albuterol 0.5 mg-3 mg(2.5 mg base)/3 mL Discontinued Reason: Doctor's Order 3 mL inhalation QID 30 days 360 mL 11RF J44.9 - Chronic obstructive pulmonary disease, unspecified Coding Level of Care Code Est Pt Level 4 (05356) Complex EM visit Add On G2211 Diagnoses Pulmonary nodules R91.8 Centrilobular emphysema J43.2 COPD type: emphysema Emphysema type: centrilobular Oral phase dysphagia R13.11 Dysphagia type: oral phase Pneumoconiosis J64 Severe persistent asthma without complication J45.50 Asthma persistence: persistent Asthma complication type: uncomplicated Time Spent (min) 17
== END 2025-04-06 16:09 | disposition home or self-care (01) ==
LOC: HO.HPS 15:42
PROVIDERS: PCP Internal Medicine; Visit Provider Hospitalist
DX: R91.8 Other nonspecific abnormal finding of lung field (principal); J43.2 Centrilobular emphysema; R13.11 Dysphagia, oral phase; J64 Unspecified pneumoconiosis; J45.50 Severe persistent asthma, uncomplicated
CPT/HCPCS: 99214

== ENCOUNTER → 2025-04-06 15:41 | Outpatient (BNVA) | payer OTHER, SELFPAY | PROVIDERS: PCP Internal Medicine; Visit Provider Hospitalist | DX: J43.2 Centrilobular emphysema (principal); R91.8 Other nonspecific abnormal finding of lung field; R13.11 Dysphagia, oral phase; J64 Unspecified pneumoconiosis; J45.50 Severe persistent asthma, uncomplicated; K21.9 Gastro-esophageal reflux disease without esophagitis | CPT/HCPCS: 99212 ==

== ENCOUNTER 2025-05-03 15:05 | Outpatient (REF) | payer OTHER, SELFPAY ==
--- NOTE | 2025-05-03 15:44 | MHC.AU.HA1 ---
Hearing Aid Evaluation Date of Visit: 05/03/25 Historical Information: Description of Hearing: Within normal at 250Hz gradually sloping to severe sensorineural hearing loss as tested at ENT 04/16/2025. Current personal amplification information, if applicable: None. Summary: Recently seen at ENT for evaluation. Binaural amplification recommended. He reports frequent asks for repetition, ready to try amplification. Notes tinnitus Au. Discussed benefits and limitations of amplification, possible relief from tinnitus with amplification. Discussed adjustment to amplification. Reviewed options. Recommended RITE style hearing aid. [place] selected battery operated. He has an iPhone that he is not interested in pairing hearing aids to at this time. Hearing Aid Prescription: Based on the individual?s shared listening needs, communication environments, dexterity, desire for connectivity, and personal preferences, the following prescription for amplification has been made: Right ear: Make, Model, Color: Phonak Audeo L 70 312, sand beige, Battery Size: 312 Machine Design Engineer/Slim Tube: 2M Type of Earmold/Dome/CShell/SlimTip: MED VENTED Left ear: Make, Model, Color: Phonak Audeo L 70 312, sand beige, Battery Size: 312 Machine Design Engineer/Slim Tube: 2M Type of Earmold/Dome/CShell/SlimTip: MED VENTED Plan of Care: Patient wishes to purchase hearing aids as prescribed Action Taken/Action Needed: Hearing Instrument Fitting to be scheduled when materials arrive Primary Diagnosis: H90.3 Bilateral Sensorineural Hearing Loss Signature: Provider: Deb Huizar, CCC-A
== END 2025-05-03 15:06 | disposition home or self-care (01) ==
LOC: HO.HAP 15:05
PROVIDERS: PCP Internal Medicine; Visit Provider Otolaryngology
DX: H90.3 Sensorineural hearing loss, bilateral (principal)
CPT/HCPCS: 92591